=== PATIENT | male | born 1980 | race Caucasian/White ===

== ENCOUNTER → 2025-01-09 | Outpatient (CLI) | payer BC, SELFPAY ==
[2025-01-09 08:28] LABS: Basophils % (Auto) 0 % (0-2.5); Eosinophils # (Auto) 0.2 Thou/mm3 (0.0-0.5); Eosinophils % (Auto) 2 % (0-10); Hematocrit 48.2 % (41.0-53.0); Immature Granulocytes % (Auto) 1 % (0-0); Immature Granulocytes Auto 0.08 Thou/mm3 (0.00-0.00); Lymphocytes # (Auto) 2.1 Thou/mm3 (1.0-4.8); Lymphocytes % (Auto) 26 % (10-50); Mean Corpuscular HGB Conc 33.2 g/dl (31.0-37.0); Mean Corpuscular Hemoglobin 29.9 pg (25.0-35.0); Mean Corpuscular Volume 90 fL (80-100); Monocytes # (Auto) 0.8 Thou/mm3 (0.0-0.8); Monocytes % (Auto) 10 % (0-12); Neutrophils # (Auto) 4.7 Thou/mm3 (1.8-7.7); Neutrophils % (Auto) 60 % (37-80); Nucleated Red Blood Cell % 0 /100 WBC (0); Platelet Count 255 Thou/mm3 (140-440); RDW Standard Deviation 42.7 fL (35.1-43.9); Red Blood Count 5.35 Miln/mm3 (4.50-5.90); White Blood Count 7.9 Thou/mm3 (3.8-10.6)
[2025-01-09 08:50] LABS: Glucose Estimated Average 114 mg/dL (80-131); Hemoglobin A1C 5.6 % Hgb (4.8-6.0)
[2025-01-09 09:02] LABS: Alanine Aminotransferase 63 U/L (10-49); Albumin, Serum 4.5 gm/dL (3.5-5.0); Albumin/Globulin Ratio 1.9 (1.2-2.2); Alkaline Phosphatase 97 U/L (46-116); Anion Gap 5 (7-16); Aspartate Amino Transferase 30 U/L (0-34); BUN/Creatinine Ratio 18 Ratio (12-20); Bilirubin,Total 1.1 mg/dL (0.3-1.2); Blood Urea Nitrogen 25 mg/dL (9-23); Calcium 9.9 mg/dL (8.3-10.6); Calcium (Corrected) 9.9 mg/dL (8.5-10.1); Carbon Dioxide 26.9 mMol/L (20.0-31.0); Chloride 109 mMol/L (98-107); Creatinine (Component) 1.4 mg/dL (0.6-1.3); Globulin 2.4 gm/dL (2.3-3.5); Glucose 108 mg/dL (74-106); Osmolality,Calculated 286 (275-295); Potassium 4.8 mMol/L (3.4-5.1); Sodium 141 mMol/L (136-145); Thyroid Stimulating Hormone 2.19 uIU/mL (0.55-4.78); Total Protein 6.9 gm/dL (5.7-8.2); eGFR > 60 See Note
== END | disposition home or self-care (01) ==
PROVIDERS: PCP Specialist; Referring Provider Specialist; Visit Provider Specialist
DX: L70.9 Acne, unspecified (principal); Z79.899 Other long term (current) drug therapy
CPT/HCPCS: 36415; 80053; 83036; 84443; 85025

== ENCOUNTER → 2025-01-28 | Outpatient (CLI) | payer BC, SELFPAY ==
[2025-01-28 11:42] LABS: Anion Gap 4 (7-16); BUN/Creatinine Ratio 17 Ratio (12-20); Blood Urea Nitrogen 22 mg/dL (9-23); Carbon Dioxide 28.1 mMol/L (20.0-31.0); Chloride 108 mMol/L (98-107); Creatinine (Component) 1.3 mg/dL (0.6-1.3); Glucose 99 mg/dL (74-106); Osmolality,Calculated 282 (275-295); Phosphorous 3.1 mg/dL (2.4-5.1); Sodium 140 mMol/L (136-145); eGFR > 60 See Note
== END | disposition home or self-care (01) ==
LOC: COPL 10:41
PROVIDERS: PCP Specialist; Referring Provider Specialist; Visit Provider Specialist
DX: N18.9 Chronic kidney disease, unspecified (principal)
CPT/HCPCS: 36415; 80069

== ENCOUNTER → 2025-04-17 | Outpatient (CLI) | payer BC, SELFPAY ==
--- NOTE | 2025-04-17 14:20 | XR_ITS ---
Examination: PA lateral chest 2 views TECHNIQUE: Upright PA lateral chest 2 views Date and time: April 17, 2025 1445 hours INDICATIONS: Coughing beginning one week ago. FINDINGS: Normal heart size Lungs are clear. Osseous structures are intact IMPRESSION: No active disease
== END | disposition home or self-care (01) ==
PROVIDERS: PCP Specialist; Referring Provider Specialist; Visit Provider Specialist
DX: R05.9 Cough, unspecified (principal)
CPT/HCPCS: 71046